=== PATIENT | female | born 1965 | race Caucasian/White ===

== ENCOUNTER → 2024-05-08 | Outpatient (CLI) | payer MEDICAID, SELFPAY ==
--- NOTE | 2024-05-08 08:15 | XR_ITS ---
Examination: Diagnostic digital mammography, bilateral Computer aided detection 3-D breast Tomosynthesis, bilateral Date and time of exam: May 08, 2024 0804 hours INDICATIONS: History suspicious biopsied microcalcifications right breast Technique: Nonmagnified MLO, CC views of the breasts to been obtained, reconstructed from 3-D Tomosynthesis images. R2 computer aided detection program utilized for evaluation of suspicious masses and/or abnormal calcifications. 3-D Tomosynthesis images obtained. Findings: Scattered areas of fibroglandular density Numerous bilateral calcifications Breast biopsy marker upper outer right breast No suspicious masses Impression: BI-RADS Category 3: Probably benign findings Recommend 6 month bilateral mammography follow-up.
== END | disposition home or self-care (01) ==
LOC: CDIM 07:51
PROVIDERS: Referring Provider Physician Assistant; Visit Provider Physician Assistant
DX: R92.333 Mammographic heterogeneous density, bilateral breasts (principal)
CPT/HCPCS: 77062; 77066; G0279

== ENCOUNTER → 2024-12-05 | Outpatient (CLI) | payer MEDICAID, SELFPAY ==
--- NOTE | 2024-12-05 15:30 | XR_ITS ---
Examination: Diagnostic digital mammography, bilateral Computer aided detection 3-D breast Tomosynthesis, bilateral Date and time of exam: December 05, 2024 1529 hours Compared to mammograms dating to April 09, 2022 INDICATIONS: History numerous bilateral calcifications Technique: Nonmagnified MLO, CC views of the breasts to been obtained, reconstructed from 3-D Tomosynthesis images. R2 computer aided detection program utilized for evaluation of suspicious masses and/or abnormal calcifications. 3-D Tomosynthesis images obtained. Findings: Scattered areas of fibroglandular density. Stable bilateral calcifications. Breast biopsy marker inner upper right breast No interval suspicious masses Impression: BI-RADS Category 2: Benign findings Recommend yearly follow-up mammography.
== END | disposition home or self-care (01) ==
PROVIDERS: Referring Provider Physician Assistant; Visit Provider Physician Assistant
DX: R92.323 Mammographic fibroglandular density, bilateral breasts (principal); R92.1 Mammographic calcification found on diagnostic imaging of breast
CPT/HCPCS: 77062; 77066; G0279